=== PATIENT | female | born 1975 | race Caucasian/White ===

== ENCOUNTER → 2018-07-09 13:31 | Outpatient (CLI) | payer MEDICAID, SELFPAY ==
[2018-07-09 14:06] LABS: ALB/GLOB Ratio 0.7 RATIO (0.9-2.4); AST(SGOT) 14 U/L (15-37); Alanine Aminotransfer ALT/SGPT 87 U/L (13-56); Albumin, Serum 3.4 g/dL (3.2-5.0); Alkaline Phosphatase 138 U/L (45-117); Anion Gap 10 (5-15); BUN 10 mg/dL (7-18); BUN/Creat Ratio 11.4 RATIO (10-20); Calcium,Total 9.5 mg/dL (8.5-10.1); Chloride 98 mmol/L (98-107); Creatinine, Serum 0.88 mg/dL (0.55-1.02); EST Glomerular Filtration Rate 75 mL/min (>60); Est Glom Filt Rate - Afr Amer 91 mL/min (>60); Glucose 84 mg/dL (74-106); Lipase 90 U/L (73-393); Potassium 3.1 mmol/L (3.5-5.1); Protein, Total 8.4 g/dL (6.4-8.2); Sodium Level 135 mmol/L (136-145)
== END ==
PROVIDERS: Visit Provider Nurse Practitioner Primary Care
DX: R10.11 Right upper quadrant pain (principal); R74.8 Abnormal levels of other serum enzymes
CPT/HCPCS: 80053; 83690

== ENCOUNTER 2018-08-11 05:35 | Day surgery (SDC) | payer MEDICAID, SELFPAY ==
[2018-08-11] VITALS (8 sets, daily range): BP systolic 139–152; BP diastolic 81–96; PULSE 78–115; RESP 14–16; TEMP 36.6–37.6; O2SAT 90–98; BMI 46.0
--- NOTE | 2018-08-11 | GALL_PTH ---
PATIENT: JASON CORONA LOC: [facility] [place] U#:[id number] AGE/SX: 42/F ROOM: RE08/11/[address]: Dr. Zachary Arnold MD : [id number] BED: DIS: 08/11/2018 SPEC #: [id number] RECD: 08/11/18 13:26 STATUS: NEHA JAMIA #: [id number] CANELO: 08/11/18 00:[address]: Zachary Arnold DEPT: SURGICAL PATHOLOGY RECD BY: Pasha Jarvis ENTERED: 08/11/18 13:26 SP TYPE: LUCY NINA DR: Dr. Matthew Carpenter DO Tissues: Gallbladder, NOS Procedures: Surgery Specimen Level III HEADER OPERATION: Laparoscopic cholecystectomy with IOC PRE-OP DIAGNOSIS: Calculus of gallbladder with chronic cholecystitis without obstruction TISSUE SUBMITTED: Gallbladder MICROSCOPIC DIAGNOSIS Gallbladder, cholecystectomy: Chronic cholecystitis and cholelithiasis. AM:trista 08/12/18 MICROSCOPIC DESCRIPTION Slides are reviewed. GROSS DESCRIPTION Received is one container labeled with the patient's name and designated gallbladder. The specimen consists of a gallbladder measuring 13 cm in length and 3.5 cm in diameter. The external surface is pink-sheriff, smooth and glistening for the most part. Focally it is granular, hemorrhagic and contains cautery artifact. The gallbladder contains green-yellow mucoid bile and multiple multifaceted, orange-brown stones measuring in aggregate 8 x 7 x 2.5 cm and 0.3 to 2 cm in greatest dimension. The mucosa is bile-stained and without any mass lesions. The gallbladder wall measures up to 0.2 cm in thickness. Pile Driver Engineer sections from the gallbladder and the cystic duct are submitted in one cassette. / SJ:trista 08/11/18 TC:3 [facility]: [id number]
--- NOTE | 2018-08-11 05:41 | EKG12_ITS ---
Test Reason : PRE OP Blood Pressure : / mmHG Vent. Rate : 098 BPM Atrial Rate : 098 BPM P-R Int : 168 ms QRS Dur : 080 ms QT Int : 354 ms P-R-T Axes : 060 035 054 degrees QTc Int : 451 ms Normal sinus rhythm Normal ECG Confirmed by MARILEE LOCO, WALDO ([id number]), editor & co founder HEYDI TREJO ([id number]) on 08/12/2018 2:34:44 PM Referred By: Zachary Arnold Confirmed By:WALDO HUNT MD
[2018-08-11 05:58] LABS: Internal QC Validated? YES +Cl - CLEAR BKGD; Pregnancy, Urine Negative Negative
--- NOTE | 2018-08-11 06:08 | PCM.DC.GS ---
Discharge Diet: Light diet - advance as tolerated - if you have questions about your diet instructions, please talk to you doctor. Discharge Activity: May Not Drive - for 1 week or while taking narcotic pain medicine. May shower in (days): 1 Lifting Restrictions: 10 pounds Call your doctor if your incision/area has: Continuous Slow Oozing, Sudden Increased Bleeding, Increased Pain/ Swelling, Increased Redness, Foul Smelling Discharge Call your doctor if you observe: Fever of 101 or Higher Suture Line Care: Avoid Pulling/Pushing, Avoid Pinching/Bending Additional Dressing/Incision Instructions:: Change or remove dressing in 4 days. Leave steri-strips in place for 1 week. Allergies/Adverse Reactions: Allergies No Known Allergies Allergy (Verified 08/05/18 10:04) Medications to take at Discharge fluoxetine 40 mg capsule 40 mg PO DAILY 07/29/18 lisinopril 10 mg-hydrochlorothiazide 12.5 mg tablet 1 tab PO DAILY 07/29/18 ranitidine 150 mg capsule 150 mg PO BID cap 07/29/18 Hydrocodone Bitart/Apap 5-325 [[place] 5MG-325MG] 1 tablet PO Q6H PRN PRN 3 Days #10 tablet 08/11/18 The following prescriptions were given: Hydrocodone Bitart/Apap 5-325 [[place] 5MG-325MG] 1 tablet PO Q6H PRN PRN 3 Days #10 tablet PRN Reason: Pain Primary Care Physician: Matthew Carpenter DO [Primary Care Provider] - Test Results: Test results from this visit will be discussed in further detail at your follow-up appointment, if applicable. Please Follow Up With: Zachary Arnold MD - [phone] When: Call to make an appointment to be seen in about 10 days.
[2018-08-11 06:22] LABS: Hematocrit 39.1 % (37-47); Hemoglobin 12.7 g/dl (12.0-15.0); Mean Corp Hgb Conc 32.5 g/gl (32-36); Mean Corpuscular Hgb 27.9 pg (27.0-32.0); Mean Corpuscular Volume 85.9 fL (81-99); Mean Platelet Vol. 10.2 fl (6.2-12.0); Platelet Count 270 K/mm3 (150-450); RBC Distribution Width CV 14.6 % (11.6-14.6); RBC Distribution Width SD 45.2 fl (35.1-43.9); Red Blood Count 4.55 M/mm3 (4.2-5.4); White Blood Count 8.4 K/mm3 (4.4-11.0)
[2018-08-11 06:23] LABS: Scan Indicated on CBC? Y/N NO
[2018-08-11 06:32] LABS: Anion Gap 10 (5-15); BUN 12 mg/dL (7-18); BUN/Creat Ratio 12.3 RATIO (10-20); Calcium,Total 9.5 mg/dL (8.5-10.1); Chloride 101 mmol/L (98-107); Creatinine, Serum 0.97 mg/dL (0.55-1.02); EST Glomerular Filtration Rate 66 mL/min (>60); Est Glom Filt Rate - Afr Amer 80 mL/min (>60); Estimated Creatinine Clearance 70.73 ml/min; Glucose 108 mg/dL (74-106); Potassium 3.7 mmol/L (3.5-5.1); Sodium Level 137 mmol/L (136-145)
[2018-08-11] MEDS: Cefazolin 2 GM in 0.9% Normal Saline 100 ML IV (07:15)
--- NOTE | 2018-08-11 07:15 | RAD_ITS ---
CLINICAL HISTORY: Female, 42 years old. Abdominal pain. PROCEDURE: CHOLANGIOGRAM - intraoperative FLUOROSCOPY TIME (if supplied): 10.7 seconds Placement of the catheter and the procedure were performed by: Zachary Arnold M.D. Fluoroscopy was provided by Saturator Operator, who was present in the room time of the procedure under the direction, supervision and review of the surgeon. TECHNIQUE: Cine imaging shows iodinated contrast injection of the cystic duct and artery system plus duodenum without extravasation, intraluminal filling defect or stricture identified. Please see operative report for additional details. RAD/Cholangiogram/ O R,Initial IMPRESSION: Please see intraoperative report for details. Electronically Signed: Zachary Sanchez, at 9:28 EDT Tel , Service support ,
[2018-08-11] MEDS: Bupivacaine Mpf 0.5% 30 ML VIAL (08:20)
--- NOTE | 2018-08-11 08:33 | OP.PCM_ITS ---
Problem List (1) Cholelithiasis with chronic cholecystitis Status: Acute Qualifiers: Report of Operation Date of Procedure: 08/11/18 Pre-Operative Diagnosis: Chronic cholecystitis cholelithiasis Post-Operative Diagnosis: Same Surgery/Procedure Performed:: Laparoscopic cholecystectomy with cholangiography Description of Surgical Findings:: Timeout and informed consent was obtained. 42-year-old female was taken the operating placement table underwent general endotracheal intubation anesthesia. Ancef 2 g are given intravenously preoperatively. The abdomen sterilely prepped and draped. 0.5% Marcaine was used as local anesthetic. Throughout the procedure total 30 cc was used. Skin sites were pre-anesthetized. A vertical infraumbilical incision was created holding sutures of 0 Vicryl placed varies needle inserted saline drop test performed the abdomen was insufflated with CO2 to a pressure of 14 mmHg pressure. 10 mm trocar inserted. 10 lap scope inserted. No evidence any trocar injuries. There was significant amount of fibrofatty omentum covering all structures. There were omentum that was adherent to the gallbladder. The liver appeared very yellow in appearance consistent with fat replacement. Under direct visitation five-minute trochars were placed in the epigastric mid abdomen right upper quadrant. The gallbladder was distracted the adhesions of the omentum had to be transected using hook cautery. Gained access to the infundibular tedious blunt dissection was performed. A Hem-o-tyree clips were used to maintain hemostasis. The critical view was achieved with the visualization of the cystic artery and the cystic duct. 2 Hem-o-tyree clips were placed proximally one distally on the cystic artery prior to transecting it. H em-o-tyree clip was placed on the cystic duct incision was created through a 14- gauge Angiocath the cholangiogram catheter was inserted. Fluoroscopically controlled claims grams obtained demonstrating normal ductal anatomy and free flow to the small bowel. The cholangiogram catheter was removed and additional Hem-o-tyree clip was placed on the cystic duct stump prior to transecting it. The gallbladder was then dissected free from the liver bed. There was absolutely no bile or stones spillage. The gallbladder was completely released. Hemostasis was intact. The gallbladder was placed in retrieval bag. The right upper quadrant was irrigated and aspirated free of excess fluid. The gallbladder to exited the umbilicus. This required enlargement of the fascial and skin incision secondary to the number of stones present within the gallbladder. It was completely removed. The trochars were removed under visualization. The abdomen was allowed to deflate. The fascia at the umbilicus approximated with several interrupted 0 Vicryl figure 8 suture. Skin edges proximate interrupted 4 Monocryl subdermal stitches. Steri-Strips and Telfa and OpSite dressings were applied. Sponge and instrument and needle counts were reported to the surgeon be correct. Specimens gallbladder. Drains none. Blood loss minimal. The patient was taken to the recovery area in satisfactory condition. Zachary Arnold M.D., F.A.C.S. Type of Anesthesia:: General Anesthesiologist: Sam Thompson
[2018-08-11] MEDS: HYDROcodone Bitartrate/Apap 5/325 Tablet PO (10:38)
== END 2018-08-11 12:08 | disposition home or self-care (01) ==
LOC: SDC 05:35 → AC 05:38
PROVIDERS: Family Provider Student in an Organized Health Care Education/Training Program; PCP Student in an Organized Health Care Education/Training Program; Referring Provider Surgery; Visit Provider Surgery
PROC: (CPT 47610; principal; 2018-08-11 06:55)
DX: K80.10 Calculus of gallbladder with chronic cholecystitis without obstruction (principal); I10 Essential (primary) hypertension; F32.9 Major depressive disorder, single episode, unspecified; K21.9 Gastro-esophageal reflux disease without esophagitis; F41.9 Anxiety disorder, unspecified; E66.01 Morbid (severe) obesity due to excess calories; Z68.42 Body mass index [BMI] 45.0-49.9, adult; Z79.899 Other long term (current) drug therapy; Z87.891 Personal history of nicotine dependence; Z86.718 Personal history of other venous thrombosis and embolism
CPT/HCPCS: 47563; 36415; 74300; 76000; 80048; 81025; 85027; 88304; 93005; J2405